=== PATIENT | female | born 1975 | race Caucasian/White ===

== ENCOUNTER 2017-12-27 09:19 | Emergency (ER) | payer BC ==
[~2017-12-27] VITALS: Ht 157.5 cm; Wt 86.0 kg
[~2017-12-27 09:19] MED LIST: L-NO1TBD PO; TRAM50TA2 PO
[2017-12-27] MEDS ORDERED: ondansetron/PF 4mg/2ml inj IV ONE (10:20)
[2017-12-27] MEDS ORDERED: normal saline 1000ML IV soln IVB ONE ×2 (10:20)
[2017-12-27] MEDS ORDERED: pantoprazole 40 MG vial IV ONE (10:20)
[2017-12-27] MEDS ORDERED: morphine 4 MG/ML inj SYRINge IV ONE ×2 (10:20→13:25)
[2017-12-27 10:44] LABS: BASOPHILS % (AUTO) 0.4 % (0-1); EOSINOPHILS # (AUTO) 0.2 X10'3 (0-0.9); EOSINOPHILS % (AUTO) 1.5 % (0-6); HEMATOCRIT 42.8 % (35.0-45.0); HEMOGLOBIN 14.3 g/dl (12.0-16.0); LYMPHOCYTES # (AUTO) 0.4 X10'3 (1.1-4.8); LYMPHOCYTES % (AUTO) 3.4 % (21-51); MEAN CORPUSCULAR HEMOGLOBIN 29.6 PG (27.0-31.0); MEAN CORPUSCULAR HGB CONC 33.4 % (33.0-36.5); MEAN CORPUSCULAR VOLUME 88.6 FL (78-98); MEAN PLATELET VOLUME 6.7 FL (7.4-10.4); MONOCYTES # (AUTO) 0.4 X10'3 (0-0.9); MONOCYTES % (AUTO) 3.7 % (2-12); NEUTROPHILS # (AUTO) 9.7 X10'3 (1.8-7.7); PLATELET COUNT 221 X10'3 (140-440); RED BLOOD COUNT 4.83 X10'6 (4.20-5.60); RED CELL DISTRIBUTION WIDTH 12.9 % (11.5-14.5); WHITE BLOOD COUNT 10.7 X10'3 (4.5-11.0)
[2017-12-27 10:54] LABS: PROTHROMBIN TIME 9.8 SECONDS (9.0-12.0)
[2017-12-27 10:59] LABS: ALBUMIN 3.3 G/DL (3.4-5.0); CALCIUM 8.2 MG/DL (8.5-10.1); POTASSIUM 3.6 MMOL/L (3.5-5.1); SODIUM 140 MMOL/L (135-145)
[2017-12-27 11:14] LABS: ALANINE AMINOTRANSFERASE 17 U/L (12-78); ALBUMIN/GLOBULIN RATIO 0.9 (1.1-1.5); ALKALINE PHOSPHATASE 89 IU/L (46-116); ANION GAP 9 (8-16); ASPARTATE AMINO TRANSFERASE 12 U/L (10-37); BILIRUBIN,TOTAL 0.6 MG/DL (0.1-1.0); BLOOD UREA NITROGEN 12 MG/DL (7-18); BUN/CREATININE RATIO 13.8 (6.6-38.0); CHLORIDE 105 MMOL/L (99-107); CREATININE 0.87 MG/DL (0.40-0.90); GLUCOSE 98 MG/DL (70-104); LIPASE 110 U/L (73-393); TOTAL CARBON DIOXIDE 25.6 MMOL/L (24-32); TOTAL PROTEIN 6.9 G/DL (6.4-8.2); eGFR 71 ML/MIN
[2017-12-27 11:31] LABS: URINE HCG NEGATIVE (NEG)
[2017-12-27 11:32] LABS: CLARITY,URINE CLEAR (Clear); COLOR,URINE YELLOW (Yellow); GLUCOSE, URINE NEGATIVE (Neg); KETONES,URINE 15 mg/dl (Neg); LEUKOCYTE ESTERASE ,URINE NEGATIVE (Neg); NITRITES, URINE NEGATIVE (Neg); OCCULT BLOOD,URINE MODERATE (Neg); PH,URINE 6.5 (4.8-8.0); PROTEIN,URINE NEGATIVE (Neg); UROBILINOGEN,URINE 0.2 E.U/dL (0.2-1.0)
[2017-12-27 11:33] LABS: UA COLLECTION TYPE CLN CATCH MIDSTREAM
[2017-12-27 11:44] LABS: WBC,URINE 0-4 /HPF (0-4)
[2017-12-27 11:45] LABS: BACTERIA,URINE FEW /HPF (Neg); COARSE GRANULAR CAST 0-3 /LPF (NEGATIVE); MUCUS STRANDS MODERATE /LPF (Neg); RBC,URINE 20-50 /HPF (0-2); SQUAMOUS EPITHELIAL CELL,UR FEW /LPF (FEW)
[2017-12-27] MEDS ORDERED: iohexol 300mg/ml 100ml inj. ONE (12:00)
[2017-12-27] MEDS ORDERED: ONDA8TAB9 PO (13:24)
[2017-12-27] MEDS ORDERED: PANT-47 PO (13:24)
[2017-12-27] MEDS ORDERED: dicyclomine 10 MG capsule PO ONE (13:25)
[2017-12-27] MEDS ORDERED: simethicone 125mg capsule PO SCH (13:25)
[2017-12-27 13:54] VITALS: BP 147/90
== END 2017-12-27 14:35 | disposition home or self-care (01) ==
LOC: ER 09:19
DX: K52.9 Noninfective gastroenteritis and colitis, unspecified (principal); R10.13 Epigastric pain; R31.0 Gross hematuria; K21.9 Gastro-esophageal reflux disease without esophagitis; Z90.49 Acquired absence of other specified parts of digestive tract; Z98.890 Other specified postprocedural states; Z79.899 Other long term (current) drug therapy
CPT/HCPCS: 36415; 74177; 80053; 81001; 81025; 83690; 85025; 85610; 96361; 96374; 96375; 96376; 99285; C9113; J2270; J2405; Q9967

== ENCOUNTER 2020-12-04 16:03 | Emergency (ER) | payer BC ==
[~2020-12-04] VITALS: Ht 157.5 cm; Wt 90.0 kg
[~2020-12-04 16:03] MED LIST changes: +ONDA8TAB9 PO; +PANT-47 PO
[2020-12-04 16:24] VITALS: BP 169/123
== END 2020-12-04 17:49 | disposition home or self-care (01) ==
LOC: ER 16:03
DX: M25.562 Pain in left knee (principal); K21.9 Gastro-esophageal reflux disease without esophagitis; X58.XXXA Exposure to other specified factors, initial encounter; Y93.89 Activity, other specified; Y92.89 Other specified places as the place of occurrence of the external cause; Y99.8 Other external cause status
CPT/HCPCS: 29515; 73564; 99283